=== PATIENT | female | born 1930 | race Caucasian/White ===

== ENCOUNTER 2021-07-09 06:09 | Observation (INO) ==
[2021-07-09] MEDS ORDERED: ONDANSETRON 4 MG/2 ML VIAL IV STA (06:23)
[2021-07-09] MEDS ORDERED: SODIUM CHLORIDE 0.9% 500 ML IV STA (06:23)
[2021-07-09 06:38] LABS: Basophils % 0.4 % (0.0-0.8); Eosinophils # 0.1 10*3/uL (0.0-0.87); Eosinophils % 0.5 % (0.00-10.9); Hematocrit 28.2 VOL% (35.7-47.0); Hemoglobin 8.9 GM/DL (12.0-16.0); Immature Granulocytes % 0.4 %; Immature Granulocytes Absolute 0.04 #; Lymphocytes # 1.4 10*3/uL (1.4-4.0); Lymphocytes % 13.8 % (21.3-54.2); Mean Corpuscular HGB Conc 31.6 GM/DL (32-36); Mean Platelet Volume 12.4 FL (9.6-12.0); Monocytes % 5.8 % (1.7-12.7); NRBC # 0.03 10*3/uL; Neutrophils % 79.1 % (38.7-73.9); Platelet Count 144 T/CUMM (130-400); Red Blood Count 2.82 MC/CUMM (3.8-5.5); Red Cell Distribution Width 20.2 % (9.3-17.3); White Blood Count 10.1 T/CUMM (4-12)
[2021-07-09 06:58] LABS: Albumin 3.2 G/DL (3.4-5.0); Bilirubin,Total 0.8 MG/DL (0.20-1.00); Calcium 7.9 MG/DL (8.5-10.1); Osmolality,Calculated 292.7 MOS/KG (273-304); Potassium 3.2 MMOL/L (3.5-5.1); Total Protein 6.6 G/DL (6.4-8.2)
[2021-07-09] MEDS ORDERED: FUROSEMIDE 40 MG/4 ML VIAL IV STA (08:29)
[2021-07-09] MEDS ORDERED: ACETAMINOPHEN 325 MG TABLET PO PRN (08:37)
[2021-07-09] MEDS ORDERED: ONDANSETRON 4 MG/2 ML VIAL IV PRN (08:37)
[2021-07-09] MEDS ORDERED: GLUCAGON 1 MG VIAL IM PRN (08:37)
[2021-07-09] MEDS ORDERED: DEXTROSE 50% 25 GM/50 ML VIAL IV PRN (08:37)
[2021-07-09 08:38] LABS: Bilirubin,Urine Negative (Negative); Blood, Urine Small mg/dL (Negative); Glucose,Urine (UA) Negative (Negative); Ketones,Urine Negative (Negative); Nitrite,Urine Negative (Negative); Protein,Urine Negative; RBC,Urine <1 /HPF (0-4); Squamous Epithelial Cell,Urine Occasional /HPF (0-10); Urine Appearance CLEAR (Clear); Urine Color Straw (Yellow); Urine Specific Gravity 1.009 (1.001-1.035); Urine Urobilinogen < 2.0 EU/DL (0.2-1.0)
[2021-07-09] MEDS: FUROSEMIDE 40 MG/4 ML VIAL IV SCH (09:42)
[2021-07-09] MEDS: ENOXAPARIN 30 MG/0.3 ML SYRINGE SUBCUT SCH (09:42)
[2021-07-09] MEDS: CLOPIDOGREL 75 MG TABLET PO SCH (09:42)
[2021-07-09] MEDS: PANTOPRAZOLE 40 MG TABLET PO SCH (09:43)
[2021-07-09] MEDS: busPIRone 5 MG TABLET PO SCH ×2 (10:51→21:08)
[2021-07-09] MEDS: FLUDROCORTISONE 0.1 MG TABLET PO SCH (10:51)
[2021-07-09] MEDS: SERTRALINE 50 MG TABLET PO SCH (10:51)
[2021-07-09] MEDS: INSULIN LISPRO 100 UNIT/ML SUBCUT SCH ×3 (12:54→21:08)
[2021-07-09] MEDS ORDERED: KETOROLAC 15 MG/1 ML VIAL IV ONE (14:08)
[2021-07-09 14:27] LABS: CKMB % 10.6 %
[2021-07-09 14:29] LABS: High Sensitive Troponin I* 5232.1 ng/L (0-54)
[2021-07-09] MEDS ORDERED: POTASSIUM CHLORIDE 20 MEQ TABLET PO ONE (14:58)
[2021-07-09] MEDS: ASPIRIN EC 81 MG TABLET PO SCH (16:49)
[2021-07-09] MEDS ORDERED: NITROGLYCERIN SL 0.4 MG TABLET SL PRN (19:07)
[2021-07-09] MEDS ORDERED: MORPHINE 2 MG/1 ML SYRINGE IV PRN (19:08)
[2021-07-09] MEDS ORDERED: FUROSEMIDE 40 MG/4 ML VIAL IV ONE (19:09)
[2021-07-09] MEDS ORDERED: DONEPEZIL 5 MG TABLET PO SCH (21:00)
[2021-07-09] MEDS: SIMVASTATIN 40 MG TABLET PO SCH (21:08)
[2021-07-09 22:19] LABS: CKMB % 9.2 %; High Sensitive Troponin I* 5358.8 ng/L (0-54)
[2021-07-10 05:09] LABS: Basophils % 0.2 % (0.0-0.8); Hematocrit 26.8 VOL% (35.7-47.0); Hemoglobin 8.5 GM/DL (12.0-16.0); Immature Granulocytes % 0.2 %; Immature Granulocytes Absolute 0.02 #; Lymphocytes # 1.7 10*3/uL (1.4-4.0); Lymphocytes % 17.2 % (21.3-54.2); Mean Corpuscular HGB Conc 31.7 GM/DL (32-36); Mean Corpuscular Volume 101.5 FL (87-102); Mean Platelet Volume 12.5 FL (9.6-12.0); Monocytes % 8.7 % (1.7-12.7); NRBC # 0.04 10*3/uL; Neutrophils % 73.7 % (38.7-73.9); Platelet Count 131 T/CUMM (130-400); Red Blood Count 2.64 MC/CUMM (3.8-5.5); Red Cell Distribution Width 20.3 % (9.3-17.3); White Blood Count 9.9 T/CUMM (4-12)
[2021-07-10 05:35] LABS: Calcium 8.3 MG/DL (8.5-10.1); Osmolality,Calculated 294.6 MOS/KG (273-304); Potassium 4.1 MMOL/L (3.5-5.1); Risk Ratio 1.81; VLDL Cholesterol 15.6 MG/DL
[2021-07-10] MEDS: INSULIN LISPRO 100 UNIT/ML SUBCUT SCH ×4 (08:37→21:13)
[2021-07-10] MEDS: FUROSEMIDE 40 MG/4 ML VIAL IV SCH (09:27)
[2021-07-10] MEDS: FLUDROCORTISONE 0.1 MG TABLET PO SCH (09:32)
[2021-07-10] MEDS: busPIRone 5 MG TABLET PO SCH ×2 (09:33→20:47)
[2021-07-10] MEDS: PANTOPRAZOLE 40 MG TABLET PO SCH (09:33)
[2021-07-10] MEDS: CLOPIDOGREL 75 MG TABLET PO SCH (09:33)
[2021-07-10] MEDS: ASPIRIN EC 81 MG TABLET PO SCH (09:34)
[2021-07-10] MEDS: SERTRALINE 50 MG TABLET PO SCH (09:34)
[2021-07-10] MEDS: ENOXAPARIN 30 MG/0.3 ML SYRINGE SUBCUT SCH (09:37)
[2021-07-10] MEDS: METOPROLOL TARTRATE 25 MG TABLET PO SCH ×2 (12:40→20:47)
[2021-07-10] MEDS: ISOSORBIDE MONONITRATE 30 MG TABLET PO SCH (12:40)
[2021-07-10] MEDS: SIMVASTATIN 40 MG TABLET PO SCH (20:47)
[2021-07-11 05:59] LABS: Basophils % 0.2 % (0.0-0.8); Eosinophils % 0.2 % (0.00-10.9); Hematocrit 26.8 VOL% (35.7-47.0); Hemoglobin 8.5 GM/DL (12.0-16.0); Immature Granulocytes % 0.2 %; Immature Granulocytes Absolute 0.02 #; Lymphocytes # 2.4 10*3/uL (1.4-4.0); Lymphocytes % 25.6 % (21.3-54.2); Mean Corpuscular HGB Conc 31.7 GM/DL (32-36); Mean Corpuscular Volume 100.4 FL (87-102); Mean Platelet Volume 13.3 FL (9.6-12.0); Monocytes % 8.7 % (1.7-12.7); NRBC # 0.05 10*3/uL; Neutrophils % 65.1 % (38.7-73.9); Platelet Count 130 T/CUMM (130-400); Red Blood Count 2.67 MC/CUMM (3.8-5.5); Red Cell Distribution Width 20.4 % (9.3-17.3); White Blood Count 9.5 T/CUMM (4-12)
[2021-07-11 06:26] LABS: Calcium 8.5 MG/DL (8.5-10.1); Osmolality,Calculated 288.1 MOS/KG (273-304); Potassium 3.8 MMOL/L (3.5-5.1)
[2021-07-11] MEDS: ENOXAPARIN 30 MG/0.3 ML SYRINGE SUBCUT SCH (08:24)
[2021-07-11] MEDS: METOPROLOL TARTRATE 25 MG TABLET PO SCH ×2 (08:25→21:05)
[2021-07-11] MEDS: busPIRone 5 MG TABLET PO SCH ×2 (08:25→21:04)
[2021-07-11] MEDS: CLOPIDOGREL 75 MG TABLET PO SCH (08:25)
[2021-07-11] MEDS: PANTOPRAZOLE 40 MG TABLET PO SCH (08:25)
[2021-07-11] MEDS: ASPIRIN EC 81 MG TABLET PO SCH (08:26)
[2021-07-11] MEDS: ISOSORBIDE MONONITRATE 30 MG TABLET PO SCH (08:26)
[2021-07-11] MEDS: SERTRALINE 50 MG TABLET PO SCH (08:26)
[2021-07-11] MEDS: FLUDROCORTISONE 0.1 MG TABLET PO SCH (08:26)
[2021-07-11] MEDS: FUROSEMIDE 40 MG/4 ML VIAL IV SCH (08:27)
[2021-07-11] MEDS: INSULIN LISPRO 100 UNIT/ML SUBCUT SCH ×3 (11:59→21:06)
[2021-07-11] MEDS: SIMVASTATIN 40 MG TABLET PO SCH (21:05)
[2021-07-12] MEDS: ASPIRIN EC 81 MG TABLET PO SCH (09:51)
[2021-07-12] MEDS: FLUDROCORTISONE 0.1 MG TABLET PO SCH (09:51)
[2021-07-12] MEDS: SERTRALINE 50 MG TABLET PO SCH (09:51)
[2021-07-12] MEDS: METOPROLOL TARTRATE 25 MG TABLET PO SCH (09:52)
[2021-07-12] MEDS: busPIRone 5 MG TABLET PO SCH (09:52)
[2021-07-12] MEDS: CLOPIDOGREL 75 MG TABLET PO SCH (09:52)
[2021-07-12] MEDS: PANTOPRAZOLE 40 MG TABLET PO SCH (09:52)
[2021-07-12] MEDS: ISOSORBIDE MONONITRATE 30 MG TABLET PO SCH (09:52)
[2021-07-12] MEDS: ENOXAPARIN 30 MG/0.3 ML SYRINGE SUBCUT SCH (09:53)
[2021-07-12] MEDS: FUROSEMIDE 40 MG/4 ML VIAL IV SCH (09:53)
[2021-07-12] MEDS: INSULIN LISPRO 100 UNIT/ML SUBCUT SCH ×2 (09:54→13:12)
[2021-07-12 16:22] VITALS: BP 126/47
== END 2021-07-12 16:40 | disposition home health service (06) ==
LOC: EDBD → EDUNIT# → N.ED 06:09 → N.EDINP 06:09 → N.TELEN 11:47
PROVIDERS: ADMIT Family Medicine; ATTEND Family Medicine

== ENCOUNTER 2021-07-19 06:37 | Inpatient (IN) ==
[2021-07-19] MEDS ORDERED: ASPIRIN 325 MG TABLET ONE (06:51)
[2021-07-19] MEDS ORDERED: FUROSEMIDE 40 MG/4 ML VIAL ONE (06:56)
[2021-07-19] MEDS ORDERED: NITROGLYCERIN SL 0.4 MG TABLET SL ONE (06:59)
[2021-07-19] MEDS ORDERED: NITROGLYCERIN SL 0.4 MG TABLET SL STA (07:01)
[2021-07-19] MEDS ORDERED: FUROSEMIDE 100 MG/10 ML VIAL IV STA (07:02)
[2021-07-19 07:14] LABS: Basophils # 0.1 10*3/uL (0.0-0.2); Basophils % 0.5 % (0.0-0.8); Eosinophils # 0.1 10*3/uL (0.0-0.87); Eosinophils % 0.7 % (0.00-10.9); Hematocrit 31.4 VOL% (35.7-47.0); Hemoglobin 9.2 GM/DL (12.0-16.0); Immature Granulocytes % 0.6 %; Immature Granulocytes Absolute 0.11 #; Lymphocytes # 7.6 10*3/uL (1.4-4.0); Lymphocytes % 39.7 % (21.3-54.2); Mean Corpuscular HGB Conc 29.3 GM/DL (32-36); Mean Corpuscular Volume 105.4 FL (87-102); Mean Platelet Volume 12.7 FL (9.6-12.0); Monocytes % 5.8 % (1.7-12.7); Neutrophils % 52.7 % (38.7-73.9); Platelet Count 300 T/CUMM (130-400); Red Blood Count 2.98 MC/CUMM (3.8-5.5); Red Cell Distribution Width 21.2 % (9.3-17.3); White Blood Count 19.2 T/CUMM (4-12)
[2021-07-19] MEDS ORDERED: VANCOMYCIN INJ 1,250 MG in SODIUM CHLORIDE 0.9% 250 ML IV STA (07:16)
[2021-07-19] MEDS ORDERED: CEFEPIME 2,000 MG in SODIUM CHLORIDE 0.9% 100 ML IV STA (07:16)
[2021-07-19 07:38] LABS: Bacteria,Urine Occasional /HPF (Few); Bilirubin,Urine Negative (Negative); Blood, Urine Negative (Negative); Glucose,Urine (UA) Negative (Negative); Hyaline Casts,Urine 4 /LPF (0-3); Ketones,Urine Negative (Negative); Mucus,Urine Occasional /LPF (Occasional); Nitrite,Urine Negative (Negative); Protein,Urine Negative; RBC,Urine 2 /HPF (0-4); Squamous Epithelial Cell,Urine Occasional /HPF (0-10); Urine Appearance CLEAR (Clear); Urine Color Yellow (Yellow); Urine Specific Gravity 1.013 (1.001-1.035); Urine Urobilinogen < 2.0 EU/DL (0.2-1.0)
[2021-07-19 07:39] LABS: Alanine Aminotransferase 21 U/L (13-56); Albumin 3.4 G/DL (3.4-5.0); Alkaline Phosphatase 73 U/L (45-117); Aspartate Amino Transferase 25 U/L (0-37); Blood Urea Nitrogen 30 MG/DL (7-18); Calcium 8.5 MG/DL (8.5-10.1); Carbon Dioxide 25 MMOL/L (21-32); Estimated Glom Filtration Rate 24 ML/MIN; Glucose 253 MG/DL (74-106); Osmolality,Calculated 291.5 MOS/KG (273-304); Potassium 3.8 MMOL/L (3.5-5.1); Sodium 139 MMOL/L (136-145); Total Protein 7.1 G/DL (6.4-8.2)
[2021-07-19 07:58] LABS: Pt O2 Delivery Device BIPAP
[2021-07-19 08:00] LABS: ABG HCO3 23.6 MMOL/L (20-26); ABG Oxygen Saturation 99.4 % (95-100); ABG PCO2 50.5 MM HG (35-48); ABG PH 7.312 (7.35-7.45); ABG TCO2 23.9 MMOL/L (23-27)
[2021-07-19] MEDS ORDERED: GLUCAGON 1 MG VIAL IM PRN (08:19)
[2021-07-19] MEDS ORDERED: DEXTROSE 50% 25 GM/50 ML VIAL IV PRN (08:19)
[2021-07-19] MEDS ORDERED: ONDANSETRON 4 MG/2 ML VIAL IV PRN ×2 (08:32→08:36)
[2021-07-19] MEDS ORDERED: ACETAMINOPHEN 325 MG TABLET PO PRN (08:32)
[2021-07-19] MEDS ORDERED: ENOXAPARIN 30 MG/0.3 ML SYRINGE SUBCUT STA (08:35)
[2021-07-19] MEDS ORDERED: PANTOPRAZOLE 40 MG TABLET PO SCH ×2 (09:00)
[2021-07-19] MEDS ORDERED: DOCUSATE SODIUM 100 MG CAPSULE PO SCH (09:00)
[2021-07-19] MEDS: methylPREDNISolone SOD SUC 40 MG/1 ML VIAL IV SCH ×2 (09:30→21:33)
[2021-07-19] MEDS ORDERED: MORPHINE 2 MG/1 ML SYRINGE IV PRN (09:53)
[2021-07-19] MEDS ORDERED: LORazepam 2 MG/1 ML VIAL IV PRN (09:54)
[2021-07-19] MEDS ORDERED: NITROGLYCERIN SL 0.4 MG TABLET SL PRN (10:50)
[2021-07-19] MEDS ORDERED: LEVOFLOXACIN INJ 500 MG/100 ML PREMIX IV SCH (11:00)
[2021-07-19] MEDS: INSULIN REGULAR 100 UNIT/ML SUBCUT SCH ×3 (11:37→21:33)
[2021-07-19] MEDS: ISOSORBIDE MONONITRATE 30 MG TABLET PO SCH (12:27)
[2021-07-19] MEDS: FUROSEMIDE 40 MG/4 ML VIAL IV SCH (16:59)
[2021-07-19] MEDS: SIMVASTATIN 40 MG TABLET PO SCH (21:33)
[2021-07-19] MEDS: CEFEPIME 1,000 MG in SODIUM CHLORIDE 0.9% 100 ML IV SCH (21:33)
[2021-07-19] MEDS: METOPROLOL TARTRATE 25 MG TABLET PO SCH (21:33)
[2021-07-20] MEDS: INSULIN REGULAR 100 UNIT/ML SUBCUT SCH ×4 (08:04→20:46)
[2021-07-20 08:07] LABS: Basophils % 0.1 % (0.0-0.8); Hemoglobin 8.1 GM/DL (12.0-16.0); Mean Platelet Volume 12.2 FL (9.6-12.0); Red Blood Count 2.61 MC/CUMM (3.8-5.5)
[2021-07-20 08:13] LABS: Hematocrit 26.6 VOL% (35.7-47.0); Immature Granulocytes % 0.3 %; Immature Granulocytes Absolute 0.02 #; Lymphocytes # 0.7 10*3/uL (1.4-4.0); Lymphocytes % 10.7 % (21.3-54.2); Mean Corpuscular HGB Conc 30.5 GM/DL (32-36); Mean Corpuscular Volume 101.9 FL (87-102); Monocytes % 5.1 % (1.7-12.7); NRBC # 0.04 10*3/uL; Neutrophils % 83.8 % (38.7-73.9); Red Cell Distribution Width 20.7 % (9.3-17.3)
[2021-07-20 08:16] LABS: Platelet Count 192 T/CUMM (130-400); White Blood Count 6.9 T/CUMM (4-12)
[2021-07-20 08:42] LABS: Calcium 8.9 MG/DL (8.5-10.1); Potassium 4.1 MMOL/L (3.5-5.1)
[2021-07-20] MEDS: ASPIRIN EC 81 MG TABLET PO SCH (08:55)
[2021-07-20] MEDS: ISOSORBIDE MONONITRATE 30 MG TABLET PO SCH (08:55)
[2021-07-20] MEDS: METOPROLOL TARTRATE 25 MG TABLET PO SCH ×2 (08:55→20:45)
[2021-07-20] MEDS: methylPREDNISolone SOD SUC 40 MG/1 ML VIAL IV SCH ×2 (08:59→20:47)
[2021-07-20] MEDS: FUROSEMIDE 40 MG/4 ML VIAL IV SCH ×2 (09:02→16:25)
[2021-07-20] MEDS: CEFEPIME 1,000 MG in SODIUM CHLORIDE 0.9% 100 ML IV SCH ×2 (09:06→20:48)
[2021-07-20] MEDS: PANTOPRAZOLE 40 MG VIAL IV SCH (09:06)
[2021-07-20] MEDS: LEVOFLOXACIN INJ 250 MG/50 ML PREMIX IV SCH (12:28)
[2021-07-20] MEDS: SIMVASTATIN 40 MG TABLET PO SCH (20:46)
[2021-07-21 05:26] LABS: Basophils % 0.1 % (0.0-0.8); Immature Granulocytes % 0.5 %; Immature Granulocytes Absolute 0.05 #; Lymphocytes # 0.8 10*3/uL (1.4-4.0); Lymphocytes % 8.2 % (21.3-54.2); Mean Corpuscular Volume 99.3 FL (87-102); Mean Platelet Volume 12.6 FL (9.6-12.0); Monocytes % 3.4 % (1.7-12.7); NRBC # 0.09 10*3/uL; Neutrophils % 87.8 % (38.7-73.9); Platelet Count 212 T/CUMM (130-400); Red Blood Count 2.92 MC/CUMM (3.8-5.5); Red Cell Distribution Width 20.6 % (9.3-17.3)
[2021-07-21 05:32] LABS: White Blood Count 9.8 T/CUMM (4-12)
[2021-07-21 05:57] LABS: Osmolality,Calculated 293.7 MOS/KG (273-304); Potassium 3.8 MMOL/L (3.5-5.1)
[2021-07-21] MEDS: FUROSEMIDE 40 MG/4 ML VIAL IV SCH (09:09)
[2021-07-21] MEDS: ISOSORBIDE MONONITRATE 30 MG TABLET PO SCH (09:10)
[2021-07-21] MEDS: ASPIRIN EC 81 MG TABLET PO SCH (09:10)
[2021-07-21] MEDS: METOPROLOL TARTRATE 25 MG TABLET PO SCH ×2 (09:10→21:23)
[2021-07-21] MEDS: PANTOPRAZOLE 40 MG VIAL IV SCH (09:11)
[2021-07-21] MEDS: methylPREDNISolone SOD SUC 40 MG/1 ML VIAL IV SCH ×2 (09:11→21:24)
[2021-07-21] MEDS: CEFEPIME 1,000 MG in SODIUM CHLORIDE 0.9% 100 ML IV SCH ×2 (09:13→21:35)
[2021-07-21] MEDS: INSULIN REGULAR 100 UNIT/ML SUBCUT SCH ×4 (09:46→21:24)
[2021-07-21] MEDS: LEVOFLOXACIN INJ 250 MG/50 ML PREMIX IV SCH (12:07)
[2021-07-21] MEDS: FUROSEMIDE 40 MG TABLET PO SCH (16:43)
[2021-07-21] MEDS: SIMVASTATIN 40 MG TABLET PO SCH (21:23)
[2021-07-21] MEDS: busPIRone 5 MG TABLET PO SCH (21:23)
[2021-07-22 07:55] LABS: Basophils % 0.1 % (0.0-0.8); Hemoglobin 9.6 GM/DL (12.0-16.0); Immature Granulocytes % 0.4 %; Immature Granulocytes Absolute 0.03 #; Lymphocytes # 0.6 10*3/uL (1.4-4.0); Lymphocytes % 9.2 % (21.3-54.2); Mean Corpuscular Volume 97.7 FL (87-102); Mean Platelet Volume 12.5 FL (9.6-12.0); Monocytes % 6.4 % (1.7-12.7); NRBC # 0.07 10*3/uL; Neutrophils % 83.9 % (38.7-73.9); Platelet Count 202 T/CUMM (130-400); Red Blood Count 3.07 MC/CUMM (3.8-5.5); Red Cell Distribution Width 20.1 % (9.3-17.3); White Blood Count 6.9 T/CUMM (4-12)
[2021-07-22 08:20] LABS: Osmolality,Calculated 294.8 MOS/KG (273-304); Potassium 3.7 MMOL/L (3.5-5.1)
[2021-07-22] MEDS: INSULIN REGULAR 100 UNIT/ML SUBCUT SCH ×4 (09:44→20:46)
[2021-07-22] MEDS: PANTOPRAZOLE 40 MG VIAL IV SCH (09:44)
[2021-07-22] MEDS: methylPREDNISolone SOD SUC 40 MG/1 ML VIAL IV SCH ×2 (09:44→20:46)
[2021-07-22] MEDS: ISOSORBIDE MONONITRATE 30 MG TABLET PO SCH (09:45)
[2021-07-22] MEDS: CEFEPIME 1,000 MG in SODIUM CHLORIDE 0.9% 100 ML IV SCH ×2 (09:45→20:56)
[2021-07-22] MEDS: CLOPIDOGREL 75 MG TABLET PO SCH (09:45)
[2021-07-22] MEDS: SERTRALINE 50 MG TABLET PO SCH (09:46)
[2021-07-22] MEDS: busPIRone 5 MG TABLET PO SCH ×2 (09:46→20:45)
[2021-07-22] MEDS: FLUDROCORTISONE 0.1 MG TABLET PO SCH (09:46)
[2021-07-22] MEDS: METOPROLOL TARTRATE 25 MG TABLET PO SCH ×2 (09:46→20:45)
[2021-07-22] MEDS: FUROSEMIDE 40 MG TABLET PO SCH (09:46)
[2021-07-22] MEDS: POTASSIUM CHLORIDE 20 MEQ TABLET PO SCH (09:47)
[2021-07-22] MEDS: ASPIRIN EC 81 MG TABLET PO SCH (09:47)
[2021-07-22] MEDS: LEVOFLOXACIN INJ 250 MG/50 ML PREMIX IV SCH (11:15)
[2021-07-22] MEDS: SIMVASTATIN 40 MG TABLET PO SCH (20:45)
[2021-07-23 07:54] VITALS: BP 145/56
[2021-07-23] MEDS: methylPREDNISolone SOD SUC 40 MG/1 ML VIAL IV SCH (08:38)
[2021-07-23] MEDS: INSULIN REGULAR 100 UNIT/ML SUBCUT SCH (08:38)
[2021-07-23] MEDS: CEFEPIME 1,000 MG in SODIUM CHLORIDE 0.9% 100 ML IV SCH (08:38)
[2021-07-23] MEDS ORDERED: FUROSEMIDE 40 MG TABLET PO SCH (09:00)
[2021-07-23] MEDS: PANTOPRAZOLE 40 MG VIAL IV SCH (09:10)
[2021-07-23] MEDS: ASPIRIN EC 81 MG TABLET PO SCH (09:11)
[2021-07-23] MEDS: CLOPIDOGREL 75 MG TABLET PO SCH (09:11)
[2021-07-23] MEDS: FLUDROCORTISONE 0.1 MG TABLET PO SCH (09:11)
[2021-07-23] MEDS: busPIRone 5 MG TABLET PO SCH (09:12)
[2021-07-23] MEDS: ISOSORBIDE MONONITRATE 30 MG TABLET PO SCH (09:12)
[2021-07-23] MEDS: SERTRALINE 50 MG TABLET PO SCH (09:12)
[2021-07-23] MEDS: METOPROLOL TARTRATE 25 MG TABLET PO SCH (09:12)
[2021-07-23] MEDS: POTASSIUM CHLORIDE 20 MEQ TABLET PO SCH (09:12)
== END 2021-07-23 10:50 | disposition home health service (06) | DRG 280 ==
LOC: N.ED 06:37 → N.EDINP 08:19 → N.TELEN 10:05
PROVIDERS: ADMIT Family Medicine; ATTEND Family Medicine